=== PATIENT | female | born 1995 | race American Indian/Alaskan Native ===

== ENCOUNTER 2020-07-13 19:41 | Emergency (ER) | payer MEDICAID ==
[2020-07-13 20:47] VITALS: BP 159/101
--- NOTE | 2020-07-13 20:58 | Emergency Department Report ---
- General Chief Complaint: Dyspnea/Respdistress Stated Complaint: HEADACHE; LOSS OF SMELL; OMAR Time Seen by Provider: 07/13/20 20:49 Source: patient Mode of arrival: Ambulatory Limitations: No Limitations - History of Present Illness Initial Comments: Patient is a 25-year-old female presents emergency room complaints of a headache that began 3 days ago. She states that she lost her sense of smell and has nasal congestion. She states that the nasal congestion makes it difficult to breathe through her nose but otherwise has no shortness of breath. She states that she has a dry cough and denies any productive cough. She denies any fever, nausea, vomiting, diarrhea, chest pain. 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 She denies any recent travel. Past medical history hypertension. No allergies medications. Last menstrual cycle June 27. - Related Data Allergies Allergy/AdvReac Type Severity Reaction Status Date / Time No Known Allergies Allergy Unverified 07/13/20 21:20 ED Review of Systems ROS: Stated complaint: HEADACHE; LOSS OF SMELL; OMAR Other details as noted in HPI Comment: All other systems reviewed and negative ED Past Medical Hx - Social History Smoking Status: Never Smoker Substance Use Type: None ED Physical Exam - General Limitations: No Limitations General appearance: alert, in no apparent distress - Head Head exam: Present: atraumatic, normocephalic - Eye Eye exam: Present: normal appearance - ENT ENT exam: Present: mucous membranes moist - Respiratory Respiratory exam: Present: normal lung sounds bilaterally. Absent: respiratory distress, wheezes, rales, rhonchi, stridor, chest wall tenderness, accessory muscle use, decreased breath sounds, prolonged expiratory - Cardiovascular Cardiovascular Exam: Present: regular rate, normal rhythm, normal heart sounds. Absent: systolic murmur, diastolic murmur, rubs, gallop - Neurological Exam Neurological exam: Present: alert, oriented X3 - Psychiatric Psychiatric exam: Present: normal affect, normal mood - Skin Skin exam: Present: warm, dry, intact ED Course Vital Signs 07/13/20 20:42 Temperature 98.8 F Pulse Rate 82 Respiratory 20 Rate Blood Pressure 159/101 O2 Sat by Pulse 99 Oximetry ED Medical Decision Making - Medical Decision Making Patient is a 25-year-old female presents emergency room complaints of a headache that began 3 days ago. She states that she lost her sense of smell and has nasal congestion. She states that the nasal congestion makes it difficult to breathe through her nose but otherwise has no shortness of breath. She states that she has a dry cough and denies any productive cough. She denies any fever, nausea, vomiting, diarrhea, chest pain. 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 She denies any recent travel. Past medical history hypertension. No allergies medications. Last menstrual cycle June 27. VSS. no abnormality on physical exam as documented in chart. No clinical signs of bacterial pneumonia or bacterial bronchitis. No clinical signs of bacterial sinusitis. Symptoms have only been ongoing for 3 days. Likely viral in origin. Patient is presenting with the symptoms during COVID-19 pandemic, discussed COVID-19 with patient, discussed return precautions, discussed outpatient testing, discussed self quarantine. Advised patient Please increase your water intake. Please take Coricidin [id number]. May take Tylenol as needed for fever or body aches. Follow-up with a primary care doctor for reexamination. Return to emergency room immediately for any new or worsening symptoms including but not limited to difficulty breathing, shortness of breath, severe chest pain, unable to tolerate by mouth intake, etc. Please self quarantine for 10 days from the onset of your symptoms. Please do not go out in public. If you are around others at home please wear a mask. If you need to cough or sneeze please do so in a napkin and immediately throw it away and immediately wash your hands. Wash your hands frequently. Wipe everything down. Recommend for you to get COVID-19 testing, may have this done at primary care doctor, health department, [facility], etc Please follow your work protocols regarding the COVID-19 pandemic Critical care attestation.: If time is entered above; I have spent that time in minutes in the direct care of this critically ill patient, excluding procedure time. ED Disposition Clinical Impression: Viral URI with cough Disposition: DC-01 TO HOME OR SELFCARE Is pt being admited?: No Does the pt Need Aspirin: No Condition: Stable Instructions: COVID-19, Viral Respiratory Infection, Prevent the Spread of COVID-19 if You Are Sick - [facility] [place] Additional Instructions: Please increase your water intake. Please take Coricidin [id number]. May take Tylenol as needed for fever or body aches. Follow-up with a primary care doctor for reexamination. Return to emergency room immediately for any new or worsening symptoms including but not limited to difficulty breathing, shortness of breath, severe chest pain, unable to tolerate by mouth intake, etc. Please self quarantine for 10 days from the onset of your symptoms. Please do not go out in public. If you are around others at home please wear a mask. If you need to cough or sneeze please do so in a napkin and immediately throw it away and immediately wash your hands. Wash your hands frequently. Wipe everything down. Recommend for you to get COVID-19 testing, may have this done at primary care doctor, health department, [facility], etc Please follow your work protocols regarding the COVID-19 pandemic Referrals: your, primary care doctor [Other] - 2-3 Days Forms: Work/School Release Form(ED) Time of Disposition: 20:56 Print Language: GREEK
== END 2020-07-13 21:26 | disposition home or self-care (01) ==
LOC: ED 19:41
DX: J06.9 Acute upper respiratory infection, unspecified (principal); B97.89 Other viral agents as the cause of diseases classified elsewhere; R05 Cough
CPT/HCPCS: 99282